=== PATIENT | female | born 1970 | race Two or more races ===

== ENCOUNTER 2025-09-15 09:00 | Day surgery (SDC) | payer OTHER ==
[2025-09-13 11:41] VITALS: BP 113/75
[2025-09-13 13:59] LABS: COVID-19 AG NEGATIVE (NEGATIVE)
[~2025-09-15] VITALS: Ht 154.9 cm; Wt 64.9 kg
[~2025-09-15 09:00] MED LIST: SYNTHROID112 MCG PO
[2025-09-15] MEDS ORDERED: CEFAZOLIN SODIUM 1,000 MG VIAL ONE (11:36)
[2025-09-15] MEDS ORDERED: CHLORHEXIDINE GLUCONATE 120 ML BOTTLE TOP ONE (12:20)
== END 2025-09-15 16:25 | disposition home or self-care (01) ==
LOC: CIR.AMB 09:00
PROVIDERS: ATTEND Surgery
DX: C50.212 Malignant neoplasm of upper-inner quadrant of left female breast (principal); R59.0 Localized enlarged lymph nodes